=== PATIENT | male | born 1975 | race Caucasian/White ===

== ENCOUNTER 2017-07-01 19:34 | Inpatient (IN) | payer OTHER ==
[~2017-07-01] VITALS: Ht 185.4 cm; Wt 113.6 kg
[2017-07-01] MEDS ORDERED: CLIN300 PO (20:05)
[2017-07-01 20:35] LABS: BASOPHILS ABSOLUTE AUTO 0.01 K/mm3 (0.00-0.23); BASOPHILS PERCENT AUTO 0 % (0-2); EOSINOPHILS PERCENT AUTO 1 % (0-6); Hematocrit 40.1 % (37.0-53.0); Hemoglobin 13.1 g/dL (13.5-17.5); IMMATURE GRAN ABSOLUTE AUTO 0.02 K/mm3 (0.00-0.10); IMMATURE GRAN PERCENT AUTO 0 % (0-1); LYMPHOCYTES ABSOLUTE AUTO 0.84 K/mm3 (0.84-5.20); LYMPHOCYTES PERCENT AUTO 12 % (21-46); MONOCYTES ABSOLUTE AUTO 0.91 K/mm3 (0.16-1.47); MONOCYTES PERCENT AUTO 13 % (4-13); Mean Corpuscular HGB 30.8 pg (26.0-34.0); Mean Corpuscular HGB Conc 32.7 g/dL (31.5-36.5); Mean Corpuscular Volume 94 fL (80-100); Mean Platelet Volume 8.2 fL (9.1-12.4); NEUTROPHILS ABSOLUTE AUTO 5.04 K/mm3 (1.96-9.15); NEUTROPHILS PERCENT AUTO 73 % (41-73); Platelet Count 313 K/mm3 (150-400); RDW Coefficient Variation 13.2 % (11.7-14.2); RDW Standard Deviation 45.6 fL (35.1-46.3); Red Blood Cell Count 4.26 M/mm3 (4.30-5.90); White Blood Cell Count 6.92 K/mm3 (4.00-11.30)
[2017-07-01 20:57] LABS: Alanine Aminotransfer (ALT/SGP 19 U/L (12-78); Albumin, Blood 3.2 g/dL (3.4-5.0); Albumin/Globulin Ratio 0.8 (0.8-1.8); Alk Phos 77 U/L (50-136); Anion Gap 4 mmol/L (6-16); Aspartate Aminotrans (AST/SGOT 14 U/L (12-37); Bilirubin, Total 0.2 mg/dL (0.1-1.0); Blood Urea Nitrogen 11 mg/dL (8-24); Bun/Creatinine Ratio 12.7 (12.0-20.0); CO2, Blood 29 mmol/L (21-32); Calcium, Blood 8.3 mg/dL (8.5-10.1); Chloride, Blood 106 mmol/L (98-108); Creatinine, Blood 0.87 mg/dL (0.60-1.20); Glomerular Filtration Rate >60 (60-); Glucose, Blood 106 mg/dL (70-99); Potassium, Blood 3.8 mmol/L (3.5-5.5); Sodium, Blood 139 mmol/L (136-145); Total Protein, Blood 7.2 g/dL (6.4-8.2)
[2017-07-02 11:55] LABS: Source, Urine Clean Catch
[2017-07-02 12:07] LABS: Bilirubin, Urine Neg (Neg); Blood, Urine Neg (Neg); Glucose Qualitative, Urine Neg (Neg); Ketones, Urine Neg (Neg); Leukocyte Esterase, Urine Neg (Neg); Nitrite, Urine Neg (Neg); Protein, Urine Neg (Neg); Urobilinogen, Urine NORM (Normal)
[2017-07-02 12:14] LABS: Appearance, Urine Clear (Clear); Color, Urine Pale Yellow (P-Yellow)
[2017-07-02 12:25] LABS: U Amphetamine Screen DETECTED; U Barbituate Screen Not Detected; U Benzodiazapine Screen Not Detected; U Buprenorphine Screen Not Detected; U Cannabinoids Screen Not Detected; U Cocaine Screen Not Detected; U Methadone Screen Not Detected; U Methamphetamine Screen DETECTED; U Opiates Screen Not Detected; U Oxycodone Screen Not Detected; U Phencyclidine Screen Not Detected; U Propoxyphene Screen Not Detected
[2017-07-02 21:42] LABS: Vancomycin, Trough 9.3 ug/mL (5.0-10.0)
[2017-07-03 05:15] LABS: BASOPHILS ABSOLUTE AUTO 0.02 K/mm3 (0.00-0.23); BASOPHILS PERCENT AUTO 0 % (0-2); EOSINOPHILS ABSOLUTE AUTO 0.24 K/mm3 (0.00-0.68); EOSINOPHILS PERCENT AUTO 5 % (0-6); Hematocrit 37.9 % (37.0-53.0); Hemoglobin 12.2 g/dL (13.5-17.5); IMMATURE GRAN ABSOLUTE AUTO 0.03 K/mm3 (0.00-0.10); IMMATURE GRAN PERCENT AUTO 1 % (0-1); LYMPHOCYTES ABSOLUTE AUTO 1.45 K/mm3 (0.84-5.20); LYMPHOCYTES PERCENT AUTO 32 % (21-46); MONOCYTES ABSOLUTE AUTO 0.59 K/mm3 (0.16-1.47); MONOCYTES PERCENT AUTO 13 % (4-13); Mean Corpuscular HGB 30.8 pg (26.0-34.0); Mean Corpuscular HGB Conc 32.2 g/dL (31.5-36.5); Mean Corpuscular Volume 96 fL (80-100); Mean Platelet Volume 8.3 fL (9.1-12.4); NEUTROPHILS ABSOLUTE AUTO 2.19 K/mm3 (1.96-9.15); NEUTROPHILS PERCENT AUTO 48 % (41-73); Platelet Count 294 K/mm3 (150-400); RDW Coefficient Variation 13.4 % (11.7-14.2); RDW Standard Deviation 47.7 fL (35.1-46.3); Red Blood Cell Count 3.96 M/mm3 (4.30-5.90); White Blood Cell Count 4.52 K/mm3 (4.00-11.30)
[2017-07-03 05:39] LABS: Alanine Aminotransfer (ALT/SGP 18 U/L (12-78); Albumin, Blood 2.4 g/dL (3.4-5.0); Albumin/Globulin Ratio 0.7 (0.8-1.8); Alk Phos 67 U/L (50-136); Anion Gap 5 mmol/L (6-16); Aspartate Aminotrans (AST/SGOT 10 U/L (12-37); Bilirubin, Total 0.3 mg/dL (0.1-1.0); Blood Urea Nitrogen 14 mg/dL (8-24); CO2, Blood 28 mmol/L (21-32); Chloride, Blood 108 mmol/L (98-108); Creatinine, Blood 0.78 mg/dL (0.60-1.20); Globulin, Blood 3.6 g/dL (2.2-4.0); Glomerular Filtration Rate >60 (60-); Glucose, Blood 94 mg/dL (70-99); Potassium, Blood 3.8 mmol/L (3.5-5.5); Sodium, Blood 141 mmol/L (136-145)
[2017-07-03] MEDS ORDERED: LINE600 PO (14:31)
[2017-07-03] MEDS ORDERED: CLIN300 PO (15:54)
== END 2017-07-03 16:12 | disposition home or self-care (01) | DRG 603 ==
LOC: ER 19:34 → PCU 22:49 → MEDS 22:49 → PCU 23:46 → MEDS 07-02 10:00
PROVIDERS: Internal Medicine; Physician Assistant
DX: L03.116 Cellulitis of left lower limb (principal); F19.10 Other psychoactive substance abuse, uncomplicated; F17.210 Nicotine dependence, cigarettes, uncomplicated; Z86.14 Personal history of Methicillin resistant Staphylococcus aureus infection
CPT/HCPCS: 36415; 80053; 80202; 81003; 83605; 85025; 85651; 93971; 96361; 96365; 99285; J1885; J3370; J7030; J7050

== ENCOUNTER 2017-11-14 20:48 | Emergency (ER) | payer OTHER ==
[~2017-11-14] VITALS: Ht 185.4 cm; Wt 104.3 kg
[~2017-11-14 20:48] MED LIST: CLIN300 PO; LINE600 PO
[2017-11-15] MEDS ORDERED: ACET500 PO (12:15)
== END 2017-11-14 21:39 | disposition home or self-care (01) ==
LOC: ER 20:48
DX: S50.11XA Contusion of right forearm, initial encounter (principal); V29.9XXA Motorcycle rider (driver) (passenger) injured in unspecified traffic accident, initial encounter; F17.210 Nicotine dependence, cigarettes, uncomplicated
CPT/HCPCS: 73090; 96372; 99283-25; J1885

== ENCOUNTER 2017-11-14 23:40 | Observation (INO) | payer OTHER ==
[~2017-11-14] VITALS: Ht 185.4 cm; Wt 105.9 kg
[2017-11-15 00:35] LABS: BASOPHILS ABSOLUTE AUTO 0.02 K/mm3 (0.00-0.23); BASOPHILS PERCENT AUTO 0 % (0-2); EOSINOPHILS ABSOLUTE AUTO 0.14 K/mm3 (0.00-0.68); EOSINOPHILS PERCENT AUTO 3 % (0-6); Hematocrit 43.4 % (37.0-53.0); Hemoglobin 14.2 g/dL (13.5-17.5); IMMATURE GRAN ABSOLUTE AUTO 0.01 K/mm3 (0.00-0.10); IMMATURE GRAN PERCENT AUTO 0 % (0-1); LYMPHOCYTES PERCENT AUTO 26 % (21-46); MONOCYTES ABSOLUTE AUTO 0.55 K/mm3 (0.16-1.47); MONOCYTES PERCENT AUTO 10 % (4-13); Mean Corpuscular HGB 29.9 pg (26.0-34.0); Mean Corpuscular HGB Conc 32.7 g/dL (31.5-36.5); Mean Corpuscular Volume 91 fL (80-100); Mean Platelet Volume 8.7 fL (9.1-12.4); NEUTROPHILS ABSOLUTE AUTO 3.21 K/mm3 (1.96-9.15); NEUTROPHILS PERCENT AUTO 60 % (41-73); Platelet Count 335 K/mm3 (150-400); RDW Coefficient Variation 13.8 % (11.7-14.2); RDW Standard Deviation 46.7 fL (35.1-46.3); Red Blood Cell Count 4.75 M/mm3 (4.30-5.90); White Blood Cell Count 5.33 K/mm3 (4.00-11.30)
[2017-11-15 00:47] LABS: Alanine Aminotransfer (ALT/SGP 49 U/L (12-78); Albumin, Blood 3.5 g/dL (3.4-5.0); Albumin/Globulin Ratio 0.8 (0.8-1.8); Alk Phos 61 U/L (50-136); Anion Gap 3 mmol/L (6-16); Aspartate Aminotrans (AST/SGOT 35 U/L (12-37); Bilirubin, Total 0.3 mg/dL (0.1-1.0); Blood Urea Nitrogen 13 mg/dL (8-24); Bun/Creatinine Ratio 13.2 (12.0-20.0); CO2, Blood 31 mmol/L (21-32); Calcium, Blood 8.4 mg/dL (8.5-10.1); Chloride, Blood 106 mmol/L (98-108); Creatinine, Blood 0.98 mg/dL (0.60-1.20); Globulin, Blood 4.3 g/dL (2.2-4.0); Glomerular Filtration Rate >60 (60-); Glucose, Blood 99 mg/dL (70-99); Potassium, Blood 4.9 mmol/L (3.5-5.5); Sodium, Blood 140 mmol/L (136-145); Total Protein, Blood 7.8 g/dL (6.4-8.2)
[2017-11-15 00:48] LABS: International Normalized Ratio 0.97
[2017-11-15] MEDS ORDERED: ACET500 PO (12:15)
== END 2017-11-15 12:30 | disposition home or self-care (01) ==
LOC: ER 23:40 → SURS 23:41
PROVIDERS: Emergency Medicine
DX: S50.11XA Contusion of right forearm, initial encounter (principal); F17.210 Nicotine dependence, cigarettes, uncomplicated; V18.4XXA Pedal cycle driver injured in noncollision transport accident in traffic accident, initial encounter
CPT/HCPCS: 36415; 80053; 82550; 85025; 85610; 96361; 96365; 96375; 99284-25; G0378; J0690; J1170; J2405; J3480

== ENCOUNTER → 2018-03-17 | Outpatient (CLI) | payer OTHER ==
[~2018-03-17] MED LIST changes: +ACET500 PO
[2018-03-19 07:07] LABS: HIV SCREEN 4TH GENERATION WRFX Non Reactive (Non Reactive)
[2018-03-19 09:00] LABS: HBSAG SCREEN Negative (Negative); HEP A AB, IGM Negative (Negative); HEP B CORE AB, IGM Negative (Negative); HEP C VIRUS AB <0.1 (0.0-0.9)
[2018-03-19 23:09] LABS: CHLAMYDIA TRACHOMATIS, NAA Negative (Negative); NEISSERIA GONORRHOEAE, NAA Negative (Negative)
== END ==
LOC: LAB SHORT 11:38 → LAB EV 11:38
PROVIDERS: Emergency Medicine
DX: Z20.9 Contact with and (suspected) exposure to unspecified communicable disease (principal)
CPT/HCPCS: 80074; 86592; 87070; 87205; 87389; 87491; 87591

== ENCOUNTER → 2018-04-18 | Outpatient (CLI) | payer OTHER ==
[2018-04-18 20:42] LABS: Campylobacter Sp Not Detected (NOT DETECT); Plesiomonas Shigelloides Not Detected (NOT DETECT); Salmonella Sp Not Detected (NOT DETECT); Vibrio Cholerae Not Detected (NOT DETECT); Vibrio Sp Not Detected (NOT DETECT); Yersinia Enterocolitica Not Detected (NOT DETECT)
[2018-04-18 20:43] LABS: Adenovirus F 40/41 Not Detected (NOT DETECT); Astrovirus Not Detected (NOT DETECT); Cryptosporidium Not Detected (NOT DETECT); Cyclospora Cayetanensis Not Detected (NOT DETECT); E. Coli O157 Not Detected (NOT DETECT); Entamoeba Histolytica Not Detected (NOT DETECT); Enteroaggregative E. coli-EAEC Not Detected (NOT DETECT); Enteropathogenic E. coli-EPEC Not Detected (NOT DETECT); Enterotoxigenic E. coli-ETEC Not Detected (NOT DETECT); Giardia Lamblia Not Detected (NOT DETECT); Norovirus GI/GII Not Detected (NOT DETECT); Rotavirus A Not Detected (NOT DETECT); Sapovirus Not Detected (NOT DETECT); Shiga Toxin-prod E. coli-STEC Not Detected (NOT DETECT); Shigella/Enteroin E. coli-EIEC Not Detected (NOT DETECT)
== END | disposition home or self-care (01) ==
LOC: LAB SHORT 10:05 → LAB EV 10:05
PROVIDERS: Family Medicine
DX: A09 Infectious gastroenteritis and colitis, unspecified (principal)
CPT/HCPCS: 87086; 87507

== ENCOUNTER → 2018-10-11 | Outpatient (CLI) | payer OTHER | END | disposition home or self-care (01) | LOC: LAB SHORT 13:25 → LAB EV 13:25 | DX: R00.2 Palpitations (principal) | CPT/HCPCS: 84443 ==

== ENCOUNTER 2019-02-16 19:03 | Emergency (ER) | payer OTHER ==
[~2019-02-16] VITALS: Ht 185.4 cm; Wt 113.4 kg
== END 2019-02-16 20:40 | disposition home or self-care (01) ==
LOC: ER 19:03
DX: S61.012A Laceration without foreign body of left thumb without damage to nail, initial encounter (principal); F17.210 Nicotine dependence, cigarettes, uncomplicated; W26.0XXA Contact with knife, initial encounter
CPT/HCPCS: 12001; 73140; 99283-25

== ENCOUNTER → 2019-02-28 | Outpatient (CLI) | payer OTHER ==
[2019-03-02 03:16] LABS: HBSAG SCREEN Negative (Negative); HEP A AB, IGM Negative (Negative); HEP B CORE AB, IGM Negative (Negative); HEP C VIRUS AB <0.1 (0.0-0.9); HIV SCREEN 4TH GENERATION WRFX Non Reactive (Non Reactive)
[2019-03-03 07:07] LABS: CHLAMYDIA TRACHOMATIS, NAA Negative (Negative); NEISSERIA GONORRHOEAE, NAA Negative (Negative)
== END | disposition home or self-care (01) ==
LOC: LAB SHORT 16:48 → LAB EV 16:48
PROVIDERS: Family Medicine
DX: Z20.9 Contact with and (suspected) exposure to unspecified communicable disease (principal)
CPT/HCPCS: 80074; 86592; 87389; 87491; 87591

== ENCOUNTER 2020-07-03 18:53 | Emergency (ER) | payer OTHER ==
[~2020-07-03] VITALS: Ht 185.4 cm; Wt 117.9 kg
== END 2020-07-03 21:04 | disposition home or self-care (01) ==
LOC: ER 18:53
DX: S50.812A Abrasion of left forearm, initial encounter (principal); F17.210 Nicotine dependence, cigarettes, uncomplicated; W22.8XXA Striking against or struck by other objects, initial encounter
CPT/HCPCS: 99283

== ENCOUNTER 2023-04-11 05:21 | Emergency (ER) | payer OTHER ==
[~2023-04-11] VITALS: Ht 185.4 cm; Wt 122.5 kg
[~2023-04-11 05:21] MED LIST changes: +AMOCLA875 PO
[2023-04-11 05:41] VITALS: BP 169/114
== END 2023-04-11 05:42 | disposition home or self-care (01) ==
LOC: ER 05:21
DX: S06.0X0A Concussion without loss of consciousness, initial encounter (principal); I10 Essential (primary) hypertension; F17.210 Nicotine dependence, cigarettes, uncomplicated; Y04.0XXA Assault by unarmed brawl or fight, initial encounter; Y93.55 Activity, bike riding
CPT/HCPCS: 99283; A9270

== ENCOUNTER 2023-09-25 12:14 | Emergency (ER) | payer OTHER ==
[~2023-09-25] VITALS: Ht 185.4 cm; Wt 108.9 kg
[2023-09-25 13:00] VITALS: BP 169/100
[2023-09-25] MEDS ORDERED: Cephalexin Monohydrate 500 MG Cap PO ONE (14:15)
[2023-09-25] MEDS ORDERED: CEPH500 PO (14:20)
== END 2023-09-25 14:28 | disposition home or self-care (01) ==
LOC: ER 12:14
DX: L02.413 Cutaneous abscess of right upper limb (principal); F19.11 Other psychoactive substance abuse, in remission; F17.210 Nicotine dependence, cigarettes, uncomplicated; Z79.899 Other long term (current) drug therapy
CPT/HCPCS: 99283; A9270

== ENCOUNTER 2024-10-02 16:02 | Emergency (ER) | payer OTHER ==
[~2024-10-02] VITALS: Ht 185.4 cm; Wt 131.0 kg
[~2024-10-02 16:02] MED LIST changes: +CEPH500 PO
[2024-10-02 16:25] VITALS: BP 197/122
== END 2024-10-02 17:59 | disposition home or self-care (01) ==
LOC: ER 16:02
DX: S00.11XA Contusion of right eyelid and periocular area, initial encounter (principal); F17.210 Nicotine dependence, cigarettes, uncomplicated; V29.91XA Electric (assisted) bicycle rider (driver) (passenger) injured in unspecified traffic accident, initial encounter
CPT/HCPCS: 70140; 99283-25

== ENCOUNTER 2025-01-24 17:51 | Inpatient (IN) | payer OTHER ==
[~2025-01-24] VITALS: Ht 185.4 cm; Wt 130.5 kg
[2025-01-24] MEDS ORDERED: Ketorolac Tromethamine 15mg Vial IV ONE (18:10)
[2025-01-24 19:09] LABS: BASOPHILS ABSOLUTE AUTO 0.05 K/mm3 (0.00-0.23); BASOPHILS PERCENT AUTO 0 % (0-2); EOSINOPHILS ABSOLUTE AUTO 0.21 K/mm3 (0.00-0.68); EOSINOPHILS PERCENT AUTO 1 % (0-6); Hematocrit 42.4 % (37.0-53.0); Hemoglobin 13.7 g/dL (13.5-17.5); IMMATURE GRAN ABSOLUTE AUTO 0.10 K/mm3 (0.00-0.10); IMMATURE GRAN PERCENT AUTO 1 % (0-1); LYMPHOCYTES ABSOLUTE AUTO 1.56 K/mm3 (0.84-5.20); LYMPHOCYTES PERCENT AUTO 8 % (21-46); MONOCYTES ABSOLUTE AUTO 1.77 K/mm3 (0.16-1.47); MONOCYTES PERCENT AUTO 9 % (4-13); Mean Corpuscular HGB Conc 32.3 g/dL (31.5-36.5); Mean Corpuscular Volume 88 fL (80-100); NEUTROPHILS ABSOLUTE AUTO 16.49 K/mm3 (1.96-9.15); NEUTROPHILS PERCENT AUTO 82 % (41-73); NRBC ABSOLUTE 0.00 K/mm3 (0.00-0.02); NRBC Auto 0.0 /100 WBC (0.0-0.2); Platelet Count 354 K/mm3 (150-400); RDW Coefficient Variation 14.6 % (11.7-14.2); RDW Standard Deviation 47.4 fL (35.1-46.3)
[2025-01-24 19:25] LABS: C-REACTIVE PROTEIN, EXT RANGE 12.9 mg/dL (0.000-0.300)
[2025-01-24 19:27] LABS: Alanine Aminotransfer (ALT/SGP 22.0 U/L (12-78); Albumin, Blood 3.0 g/dL (3.4-5.0); Albumin/Globulin Ratio 0.7 (0.8-1.8); Anion Gap 6.0 mmol/L (3-11); Aspartate Aminotrans (AST/SGOT 14.0 U/L (12-37); Bilirubin, Total 0.3 mg/dL (0.1-1.0); Blood Urea Nitrogen 11.0 mg/dL (8-24); CO2, Blood 28.0 mmol/L (21-32); Calcium, Blood 8.2 mg/dL (8.5-10.1); Chloride, Blood 103.0 mmol/L (98-108); Creatinine, Blood 1.06 mg/dL (0.60-1.20); Globulin, Blood 4.3 g/dL (2.2-4.0); Glucose, Blood 106.0 mg/dL (70-99); Potassium, Blood 3.8 mmol/L (3.5-5.5); Sodium, Blood 133.0 mmol/L (136-145); Total Protein, Blood 7.3 g/dL (6.4-8.2)
[2025-01-24] MEDS ORDERED: Vancomycin (Pharmacy Consult) IV PRN (19:45)
[2025-01-24] MEDS ORDERED: Vancomycin HCL 2,500 MG in NS 500 ML IV ONE (19:50)
[2025-01-24] MEDS ORDERED: Cefepime HCl 2,000 MG in NS 100 ML IV ONE (19:55)
[2025-01-24] MEDS ORDERED: FLU VACC TS2025-26(6MOS UP)/PF 45 MCG/0.5 ML SYRINGE IM SCH (21:55)
[2025-01-24] MEDS ORDERED: OxyCODONE 5 mg/Acetamin 325 mg TABLET PO PRN (21:55)
[2025-01-24] MEDS ORDERED: Ondansetron HCl 2 MG / ML 2ML Vial IV PRN (21:55)
[2025-01-24] MEDS ORDERED: NS 1,000 ML IV SCH ×3 (21:55→23:45)
[2025-01-24] MEDS ORDERED: Vancomycin (Pharmacy Consult) IV SCH (22:00)
[2025-01-24 23:26] VITALS: BP 138/90
--- NOTE | 2025-01-25 01:44 | NUR ---
ADMIT NOTE 49 YR OLD MALE ADMITTED TO FLOOR FROM THE ED WITH DX OF SEVERE SEPSIS, WITH SWELLING OF RIGHT HAND AND FOREARM (SEE MARKED AREAS). A/O X 4. VSS. DOCUMENTATION REVEALS POSSIBLE SPIDER BITE TO HAND THE INITIAL ISSUE. REVEIVING IV ANTIBIOTICS AND IVF - SEE MAR FOR DETAILS. UP AD DIMITRI, ABLE TO REPOSITION SELF IN BED WITHOUT ASSIST. ORIENTED TO USE OF CALL LIGHT AND BED CONTROL. CALL LIGHT IN REACH AND RAILS UP X 2 WITH BED IN LOW POSITION FOR SAFETY.
[2025-01-25] MEDS ORDERED: CeFAZolin Sodium 2,000 MG in NS 100 ML IV SCH (02:00)
[2025-01-25 04:11] VITALS: BP 117/70
--- NOTE | 2025-01-25 04:58 | NUR ---
MULTIMEDIA PRODUCTION ASSISTANT SUMMARY WAS ADMITTED TO FLOOR EARLIER IN THE SHIFT WITH DX OF SEVERE SEPSIS WITH RIGHT FOREARM/HAND SWOLLEN WITH REPORTED SPIDER BITE. A/O X 4. VSS. IV ANTIBIOTICS AND IVF INFUSING - SEE MAR FOR DETAILS. PT VOICED HE SEES HIS HAND AND ARM DECREASED IN SIZE SINCE COMING IN TO THE HOSPITAL. MEDICATED FOR PAIN. HAS BEEN RESTING QUIETLY WITH FEW INTERRUPTIONS. UP AD DIMITRI. CALL LIGHT IN REACH, RAILS UP X 2 AND BED IN LOW POSITION FOR SAFETY. WILL CONT TO MONITOR.
[2025-01-25 05:27] LABS: BASOPHILS ABSOLUTE AUTO 0.06 K/mm3 (0.00-0.23); BASOPHILS PERCENT AUTO 0 % (0-2); EOSINOPHILS ABSOLUTE AUTO 0.28 K/mm3 (0.00-0.68); EOSINOPHILS PERCENT AUTO 2 % (0-6); Hematocrit 37.6 % (37.0-53.0); Hemoglobin 12.2 g/dL (13.5-17.5); IMMATURE GRAN ABSOLUTE AUTO 0.14 K/mm3 (0.00-0.10); IMMATURE GRAN PERCENT AUTO 1 % (0-1); LYMPHOCYTES ABSOLUTE AUTO 1.42 K/mm3 (0.84-5.20); LYMPHOCYTES PERCENT AUTO 9 % (21-46); MONOCYTES ABSOLUTE AUTO 1.33 K/mm3 (0.16-1.47); MONOCYTES PERCENT AUTO 9 % (4-13); Mean Corpuscular HGB Conc 32.4 g/dL (31.5-36.5); Mean Corpuscular Volume 89 fL (80-100); NEUTROPHILS ABSOLUTE AUTO 11.81 K/mm3 (1.96-9.15); NEUTROPHILS PERCENT AUTO 79 % (41-73); NRBC ABSOLUTE 0.00 K/mm3 (0.00-0.02); NRBC Auto 0.0 /100 WBC (0.0-0.2); Platelet Count 335 K/mm3 (150-400); RDW Coefficient Variation 14.6 % (11.7-14.2); RDW Standard Deviation 46.6 fL (35.1-46.3)
[2025-01-25 05:52] LABS: Anion Gap 7.0 mmol/L (3-11); Blood Urea Nitrogen 13.0 mg/dL (8-24); CO2, Blood 27.0 mmol/L (21-32); Calcium, Blood 8.0 mg/dL (8.5-10.1); Chloride, Blood 105.0 mmol/L (98-108); Creatinine, Blood 1.08 mg/dL (0.60-1.20); Glucose, Blood 117.0 mg/dL (70-99); Magnesium, Blood 1.9 mg/dL (1.6-2.4); Potassium, Blood 3.4 mmol/L (3.5-5.5); Sodium, Blood 136.0 mmol/L (136-145)
--- NOTE | 2025-01-25 06:24 | NUR ---
CONSULT CALLED IN TO ORTHOPEDICS MD MODEL SET ARTIST, ANSWERING SERVICE REPLIED HE WOULD NOTIFY THE MD. (DR PORTER). PT WITH SEVERE RIGHT ARM CELLULITIS.
[2025-01-25] MEDS ORDERED: Piperacillin/Tazobactam Sod 4.5 GM in NS 100 ML IV SCH (06:46)
[2025-01-25 07:16] VITALS: BP 117/68
[2025-01-25] MEDS ORDERED: Lactobacil 2-S.Thermo-Bifido 1 1 Cap PO SCH (09:00)
[2025-01-25] MEDS ORDERED: Enoxaparin 40 MG/0.4 ML SYR SC SCH (09:00)
[2025-01-25 13:03] LABS: U Amphetamine Screen DETECTED; U Barbiturate Screen Not Detected; U Benzodiazapine Screen DETECTED; U Buprenorphine Screen Not Detected; U Cannabinoids Screen Not Detected; U Cocaine Screen Not Detected; U Methadone Screen Not Detected; U Methamphetamine Screen DETECTED; U Opiates Screen Not Detected; U Oxycodone Screen DETECTED; U Phencyclidine Screen Not Detected
[2025-01-25 15:22] VITALS: BP 164/100
[2025-01-25] MEDS ORDERED: HydrALAZINE HCl 20 MG / ML 1ML Vial IV PRN (16:40)
--- NOTE | 2025-01-25 18:18 | NUR ---
SHIFT SUMMARY PATIENT IS A&OX4. ON ROOM AIR WITHOUT TELE. IV INFILTRATED IN THE LEFT UA TODAY, NEW IV WAS PLACED WITH ULTRASOUND BY THE CHARGE NURSE IN THE LEFT FOREARM. IV ANTIBIOTICS RUNNING. PRESSURES HAVE BEEN ELEVATED AND HE WAS GIVEN IV HYDRALAZINE WITH EXCELLENT EFFECT. ORTHO CONSULTED, ADVISED HE DOES NOT NEED A SURGERY. ENCOURAGINNG PATIENT TO KEEP THE ARM ELEVATED, USE ICE PACK, AND CONTINUE WITH IV ANTIBIOTICS. HE IS INDEPENDENT IN THE ROOM AND DID HAVE A SHOWER TODAY. VISITED BY FAMILY AND FRIENDS. NO ACUTE EVENTS THIS SHIFT. HE IS COOPERATIVE WITH CARE AND CALLS APPROPRIATELY. BED IS LOW AND LOCKED, CALL LIGHT IN REACH.
[2025-01-25 18:23] VITALS: BP 142/80
[2025-01-25 20:57] VITALS: BP 147/78
--- NOTE | 2025-01-26 03:37 | NUR ---
RESIDENT ENGINEER SUMMARY VSS. A/O X 4. RIGHT ARM REMAINS SWOLLEN, CONTINUES TO RECEIVE IV ANTIBIOTICS AND IVF, SEE MAR FOR DETAILS. FATHER AND VISITED PT THIS EVENING. UP AD DIMITRI, CONTINENT. HAS BEEN RESTING QUIETLY WITH FEW INTERRUPTIONS. SEE MAR FOR MEDS, SUCH ANALGESICS, ETC ADMIN. CALL LIGHT IN REACH, RAILS UP X 2 AND BED IN LOW POSITION FOR SAFETY. WILL CONT TO MONITOR
[2025-01-26 05:14] VITALS: BP 116/75
[2025-01-26 07:13] VITALS: BP 153/94
[2025-01-26 09:58] LABS: BASOPHILS ABSOLUTE AUTO 0.05 K/mm3 (0.00-0.23); BASOPHILS PERCENT AUTO 0 % (0-2); EOSINOPHILS ABSOLUTE AUTO 0.29 K/mm3 (0.00-0.68); EOSINOPHILS PERCENT AUTO 2 % (0-6); Hematocrit 37.2 % (37.0-53.0); Hemoglobin 11.9 g/dL (13.5-17.5); IMMATURE GRAN ABSOLUTE AUTO 0.07 K/mm3 (0.00-0.10); IMMATURE GRAN PERCENT AUTO 1 % (0-1); LYMPHOCYTES ABSOLUTE AUTO 1.17 K/mm3 (0.84-5.20); LYMPHOCYTES PERCENT AUTO 9 % (21-46); MONOCYTES ABSOLUTE AUTO 1.12 K/mm3 (0.16-1.47); MONOCYTES PERCENT AUTO 8 % (4-13); Mean Corpuscular HGB Conc 32.0 g/dL (31.5-36.5); Mean Corpuscular Volume 89 fL (80-100); NEUTROPHILS ABSOLUTE AUTO 10.65 K/mm3 (1.96-9.15); NEUTROPHILS PERCENT AUTO 80 % (41-73); NRBC ABSOLUTE 0.04 K/mm3 (0.00-0.02); NRBC Auto 0.3 /100 WBC (0.0-0.2); Platelet Count 335 K/mm3 (150-400); RDW Coefficient Variation 14.5 % (11.7-14.2); RDW Standard Deviation 46.6 fL (35.1-46.3)
[2025-01-26 10:38] LABS: Anion Gap 9 mmol/L (3-11); Blood Urea Nitrogen 8 mg/dL (8-24); CO2, Blood 27 mmol/L (21-32); Calcium, Blood 8.7 mg/dL (8.5-10.1); Chloride, Blood 105 mmol/L (98-108); Creatinine, Blood 1.06 mg/dL (0.60-1.20); Glucose, Blood 104 mg/dL (70-99); Potassium, Blood 3.9 mmol/L (3.5-5.5); Sodium, Blood 137 mmol/L (136-145); Vancomycin, Trough 11.4 ug/mL (5.0-10.0)
[2025-01-26 15:03] VITALS: BP 137/77
--- NOTE | 2025-01-26 15:51 | NUR ---
SHIFT SUMMARY PATIENT IS A&OX4. ON ROOM AIR WITHOUT TELE. IV ANTIBIOTICS RUNNING. PRESSURES HAVE REMAINED STABLE TODAY. CONTINUING TO ENCOURAGE PATIENT TO ICE AND ELEVATE ARM. THE RIGHT ARM CELLULITIS IS NOW LOCALIZED WITH A RAISED BLISTER DRAINING VERY LITTLE CLEAR FLUID. PATIENT HAS BEEN PAINFUL AND MEDICATED PER EMAR. HE IS INDEPENDENT IN THE ROOM AND CONTINENT OF BOTH BOWEL AND BLADDER. NO ACUTE EVENTS THIS SHIFT. HE IS COOPERATIVE WITH CARE AND CALLS APPROPRIATELY. BED IS LOW AND LOCKED, CALL LIGHT IN REACH.
[2025-01-26 21:25] VITALS: BP 148/83
--- NOTE | 2025-01-27 03:20 | NUR ---
BLOCK CUBER SUMMARY TEMP ELEVATED (100.5 TEMPORAL, BUT 99.5 ORAL), OTHERWISE VSS. RECEIVING IV ANTIBIOTICS FOR RIGHT ARM CELLULITIS. A/O X 4. COOPERATIVE WITH CARE. NOTE SLIGHT AMT YELLOW DRAINAGE OF RIGHT ARM/ELBOW SITE. CLEANED AND REMAINS WITHOUT FURTHER DRAINAGE. UP AD DIMITRI. HOB ELEVATED FOR COMFORT. HAS BEEN RESTING QUIETLY WITH FEW INTERRUPTIONS, CALL LIGHT IN REACH, RAILS UP X 2 AND BED IN LOW POSITION FOR SAFETY, WILL CONT TO MONITOR
[2025-01-27 03:51] VITALS: BP 143/81
[2025-01-27 04:47] LABS: BASOPHILS ABSOLUTE AUTO 0.06 K/mm3 (0.00-0.23); BASOPHILS PERCENT AUTO 1 % (0-2); EOSINOPHILS ABSOLUTE AUTO 0.37 K/mm3 (0.00-0.68); EOSINOPHILS PERCENT AUTO 3 % (0-6); Hematocrit 35.7 % (37.0-53.0); Hemoglobin 11.8 g/dL (13.5-17.5); IMMATURE GRAN ABSOLUTE AUTO 0.12 K/mm3 (0.00-0.10); IMMATURE GRAN PERCENT AUTO 1 % (0-1); LYMPHOCYTES ABSOLUTE AUTO 1.31 K/mm3 (0.84-5.20); LYMPHOCYTES PERCENT AUTO 11 % (21-46); MONOCYTES ABSOLUTE AUTO 0.97 K/mm3 (0.16-1.47); MONOCYTES PERCENT AUTO 8 % (4-13); Mean Corpuscular HGB Conc 33.1 g/dL (31.5-36.5); Mean Corpuscular Volume 87 fL (80-100); NEUTROPHILS ABSOLUTE AUTO 8.73 K/mm3 (1.96-9.15); NEUTROPHILS PERCENT AUTO 76 % (41-73); NRBC ABSOLUTE 0.00 K/mm3 (0.00-0.02); NRBC Auto 0.0 /100 WBC (0.0-0.2); Platelet Count 363 K/mm3 (150-400); RDW Coefficient Variation 14.6 % (11.7-14.2); RDW Standard Deviation 46.6 fL (35.1-46.3)
[2025-01-27 05:33] LABS: Anion Gap 8.0 mmol/L (3-11); Blood Urea Nitrogen 7.0 mg/dL (8-24); CO2, Blood 27.0 mmol/L (21-32); Calcium, Blood 8.6 mg/dL (8.5-10.1); Chloride, Blood 105.0 mmol/L (98-108); Creatinine, Blood 0.93 mg/dL (0.60-1.20); Glucose, Blood 112.0 mg/dL (70-99); Potassium, Blood 3.8 mmol/L (3.5-5.5); Sodium, Blood 136.0 mmol/L (136-145)
[2025-01-27 07:52] VITALS: BP 156/98
[2025-01-27 15:25] VITALS: BP 160/92
--- NOTE | 2025-01-27 15:43 | NUR ---
[address] PHOENIX TO UPDATE ON CHANGE OF RIGHT ARM CELLULITIS. ADVISED OFFICE OF OPENING AND DRAINAGE AND NEW SWELLING. ADVISED OF NEW IMAGING VIA ULTRASOUND FAITH.
--- NOTE | 2025-01-27 16:42 | NUR ---
SHIFT SUMMARY PATIENT IS A&OX4, HE IS ON ROOM AIR AND WITHOUT TELE. HE IS CONTINENT AND INDEPENDENT IN THE ROOM. THE RIGHT ARM CELLULITIS HAS GROWN IN SIZE, AND THE LESION THAT DEVELOPED YESTERDAY HAS STARTED TO DRAIN YELLOW THIN FLUID. THE PATIENT IS PAINFUL, AND MEDICATED PER EMAR. DR. LOPEZ ORDERED ULTRASOUND AND THIS RN LEFT MESSAGE FOR ORTHO TO UPDATE ON CHANGES TO THE ARM. PATIENT HAS BEEN COOPERATIVE WITH CARE. THERE HAVE BEEN NO ACUTE EVENTS THIS SHIFT. BED IS LOW AND LOCKED. CALL LIGHT IN REACH.
--- NOTE | 2025-01-27 16:54 | NUR ---
CALL FROM DR. PHOENIX AT 1648 DR. PHOENIX ADVISED TO ORDER CBC, ESR, CRP. HE WOULD LIKE THE CT [facility] WITH IV CONTRAST AND FOR THE PATIENT TO BE MADE NPO AFTER MIDNIGHT. DR. PHOENIX ADVISED HE WILL BE AROUND IN THE MORNING TOMORROW, 01/28 TO EVALUATE THE PATIENT.
[2025-01-27 19:52] VITALS: BP 150/94
[2025-01-28] VITALS (15 sets, daily range): BP systolic 115–156; BP diastolic 72–105
--- NOTE | 2025-01-28 03:46 | NUR ---
SHIFT SUMMARY PATIENT IS A&OX4, ABLE TO MAKE NEEDS KNOWN, BED AT LOWEST LEVEL, CALL LIGHT WITHIN REACH, CALLS APPROPRIATELY, INDEPENDENT IN THE ROOM. NO CREPITUS, FEVERS, OR CHILLS AT THIS TIME OF THE NOTE. WILL CONTINUE TO MONITOR.
[2025-01-28 05:37] LABS: BASOPHILS ABSOLUTE AUTO 0.04 K/mm3 (0.00-0.23); BASOPHILS PERCENT AUTO 0 % (0-2); EOSINOPHILS ABSOLUTE AUTO 0.36 K/mm3 (0.00-0.68); EOSINOPHILS PERCENT AUTO 4 % (0-6); Hematocrit 39.1 % (37.0-53.0); Hemoglobin 12.8 g/dL (13.5-17.5); IMMATURE GRAN ABSOLUTE AUTO 0.10 K/mm3 (0.00-0.10); IMMATURE GRAN PERCENT AUTO 1 % (0-1); LYMPHOCYTES ABSOLUTE AUTO 1.29 K/mm3 (0.84-5.20); LYMPHOCYTES PERCENT AUTO 14 % (21-46); MONOCYTES ABSOLUTE AUTO 0.74 K/mm3 (0.16-1.47); MONOCYTES PERCENT AUTO 8 % (4-13); Mean Corpuscular HGB Conc 32.7 g/dL (31.5-36.5); Mean Corpuscular Volume 88 fL (80-100); NEUTROPHILS ABSOLUTE AUTO 7.01 K/mm3 (1.96-9.15); NEUTROPHILS PERCENT AUTO 74 % (41-73); NRBC ABSOLUTE 0.00 K/mm3 (0.00-0.02); NRBC Auto 0.0 /100 WBC (0.0-0.2); Platelet Count 398 K/mm3 (150-400); RDW Coefficient Variation 14.4 % (11.7-14.2); RDW Standard Deviation 46.4 fL (35.1-46.3)
[2025-01-28 06:58] LABS: Anion Gap 8.0 mmol/L (3-11); Blood Urea Nitrogen 10.0 mg/dL (8-24); CO2, Blood 29.0 mmol/L (21-32); Calcium, Blood 9.1 mg/dL (8.5-10.1); Chloride, Blood 103.0 mmol/L (98-108); Creatinine, Blood 1.06 mg/dL (0.60-1.20); Glucose, Blood 114.0 mg/dL (70-99); Potassium, Blood 4.1 mmol/L (3.5-5.5); Sodium, Blood 136.0 mmol/L (136-145)
[2025-01-28] MEDS ORDERED: Tranexamic Acid 100 ML IV SCH (09:15)
--- NOTE | 2025-01-28 10:14 | NUR ---
PLACED ORDER FOR THERAPY DOG S/P CONVERSATION WITH PT'S FATHER. EMOTIONAL SUPPRORTIVE VISIT MADE. PT ANXIOUS ABOUT SURGERY TODAY. THERAPUTIC LISTENING PROVIDED. PT DENIES ADDITIONAL NEEDS AT THIS TIME.
[2025-01-28] MEDS ORDERED: FentaNYL Citrate 50 MCG/ML 2 ML Injection ONE ×2 (13:53→15:16)
[2025-01-28] MEDS ORDERED: Ondansetron HCl 2 MG / ML 2ML Vial IV PRN (13:55)
[2025-01-28] MEDS ORDERED: Midazolam HCl 1MG / ML 2ML Vial IV PRN (13:55)
[2025-01-28] MEDS ORDERED: Albuterol 2.5 MG/3 ML VIAL INH PRN (13:55)
[2025-01-28] MEDS ORDERED: Prochlorperazine Edisylate 10 mg Vial IV PRN (14:00)
[2025-01-28] MEDS ORDERED: Metoclopramide HCl 5MG / ML 2ML Vial IV PRN (14:00)
[2025-01-28] MEDS ORDERED: FentaNYL Citrate 50 MCG/ML 2 ML Injection IV PRN ×2 (14:00)
[2025-01-28] MEDS ORDERED: HYDROmorphone HCl/Pf 1MG SYR IV PRN (14:00)
--- NOTE | 2025-01-28 14:01 | NUR ---
TO [facility] FOR PROCEDURE. History, Chart, Medications and Allergies reviewed before start of procedure. Lungs clear T/O to Auscultation. Patient confirms NPO status and agrees with scheduled surgery. Pre-Op teaching done. Pt verbalizes understanding.
[2025-01-28] MEDS ORDERED: OxyCODONE 5 mg/Acetamin 325 mg TABLET PO PRN (16:10)
--- NOTE | 2025-01-28 19:26 | NUR ---
SUMMARY- PT A/O X4. INDEPENDANT IN ROOM. HAD I&D WITH DR PHOENIX TODAY AND RETURNED 1600. WOUND VAC 125MG CONT PUTTING OUT SM AMT SS DRAINAGE. MARKUS REMAINS RED AND SWOLLEN, LESS SWOLLEN THAN BEFORE PROCEDURE. CMS INTACT TO HAND. INCREASE IN PAIN MED PERC EFFECTIVE TO RELEIVE PAIN- PT STATES HE HAD GOOD BM THIS AM. PT TOLERATING FOOD AND FLUID AFTER SURGERY. MOM AND DAD SUPPORTIVE IN CARE AT BEDSIDE TO VISIT PT. REPORTED TO BLAINE SANFORD
[2025-01-29 03:57] VITALS: BP 150/93
--- NOTE | 2025-01-29 05:18 | NUR ---
SHIFT SUMMARY PATIENT A/OX4, ABLE TO MAKE NEEDS KNOWN. PLEASANT AND COOPERATIVE WITH CARE. INDEPENDENT IN ROOM. WOUND VAC IN PLACE TO RIGHT ARM, FUNCTIONING PROPERLY. PATIENT COMPLAINING OF PAIN TO RIGHT ARM, MEDICATED PER MAY WITH PERCOCET.IV TO LEFT FOREARM INTACT, DRESSING CHANGED THIS SHIFT. IV ABX INFUSED PER MAY. PATIENT'S SPOUSE, JESSICA, AT BEDSIDE THROUGHOUT THE NIGHT. I&D PERFORMED 01/28/25 TO REIGHT ARM CELLULITIS/ABSCESS, PATIENT STATES SOME PAIN RELIEF POST PROCEDURE, WOUND CULTURES STILL PENDING. NO OTHER CONCERNS AT THIS TIME, WILL CONTINUE TO MONITOR.
[2025-01-29 07:43] VITALS: BP 132/92
[2025-01-29 09:46] LABS: BASOPHILS ABSOLUTE AUTO 0.07 K/mm3 (0.00-0.23); BASOPHILS PERCENT AUTO 1 % (0-2); EOSINOPHILS ABSOLUTE AUTO 0.41 K/mm3 (0.00-0.68); EOSINOPHILS PERCENT AUTO 5 % (0-6); Hematocrit 37.1 % (37.0-53.0); Hemoglobin 11.9 g/dL (13.5-17.5); IMMATURE GRAN ABSOLUTE AUTO 0.14 K/mm3 (0.00-0.10); IMMATURE GRAN PERCENT AUTO 2 % (0-1); LYMPHOCYTES ABSOLUTE AUTO 1.11 K/mm3 (0.84-5.20); LYMPHOCYTES PERCENT AUTO 13 % (21-46); MONOCYTES ABSOLUTE AUTO 0.71 K/mm3 (0.16-1.47); MONOCYTES PERCENT AUTO 9 % (4-13); Mean Corpuscular HGB Conc 32.1 g/dL (31.5-36.5); Mean Corpuscular Volume 88 fL (80-100); NEUTROPHILS ABSOLUTE AUTO 5.87 K/mm3 (1.96-9.15); NEUTROPHILS PERCENT AUTO 71 % (41-73); NRBC ABSOLUTE 0.00 K/mm3 (0.00-0.02); NRBC Auto 0.0 /100 WBC (0.0-0.2); Platelet Count 407 K/mm3 (150-400); RDW Coefficient Variation 14.5 % (11.7-14.2); RDW Standard Deviation 46.5 fL (35.1-46.3)
[2025-01-29 10:51] LABS: Vancomycin, Trough 17.2 ug/mL (5.0-10.0)
[2025-01-29 11:08] LABS: Anion Gap 7.0 mmol/L (3-11); Blood Urea Nitrogen 13.0 mg/dL (8-24); CO2, Blood 28.0 mmol/L (21-32); Calcium, Blood 8.6 mg/dL (8.5-10.1); Chloride, Blood 105.0 mmol/L (98-108); Creatinine, Blood 1.13 mg/dL (0.60-1.20); Glucose, Blood 116.0 mg/dL (70-99); Potassium, Blood 4.0 mmol/L (3.5-5.5); Sodium, Blood 136.0 mmol/L (136-145)
[2025-01-29 15:12] VITALS: BP 147/94
[2025-01-29 21:02] VITALS: BP 135/77
[2025-01-30] VITALS (11 sets, daily range): BP systolic 124–165; BP diastolic 78–100
--- NOTE | 2025-01-30 01:55 | NUR ---
SHIFT SUMMARY POD2 FOR RFA I&D WITH WOUND VAC IN PLACE. PLAN FOR REPEAT I&D 01/30/25 WITH NEW WOUND VAC PLACEMENT. NPO. PT A&OX4. ABLE TO MAKE NEEDS KNOWN. AD DIMITRI IN ROOM. LFA PIV/ANTIBIOTICS. PAIN MEDICATED PER MAY, EFFECTIVE. VSS. ROOM AIR.
[2025-01-30 05:22] LABS: BASOPHILS ABSOLUTE AUTO 0.03 K/mm3 (0.00-0.23); BASOPHILS PERCENT AUTO 0 % (0-2); EOSINOPHILS ABSOLUTE AUTO 0.47 K/mm3 (0.00-0.68); EOSINOPHILS PERCENT AUTO 6 % (0-6); Hematocrit 38.4 % (37.0-53.0); Hemoglobin 12.1 g/dL (13.5-17.5); IMMATURE GRAN ABSOLUTE AUTO 0.14 K/mm3 (0.00-0.10); IMMATURE GRAN PERCENT AUTO 2 % (0-1); LYMPHOCYTES ABSOLUTE AUTO 1.40 K/mm3 (0.84-5.20); LYMPHOCYTES PERCENT AUTO 19 % (21-46); MONOCYTES ABSOLUTE AUTO 0.60 K/mm3 (0.16-1.47); MONOCYTES PERCENT AUTO 8 % (4-13); Mean Corpuscular HGB Conc 31.5 g/dL (31.5-36.5); Mean Corpuscular Volume 89 fL (80-100); NEUTROPHILS ABSOLUTE AUTO 4.76 K/mm3 (1.96-9.15); NEUTROPHILS PERCENT AUTO 64 % (41-73); NRBC ABSOLUTE 0.00 K/mm3 (0.00-0.02); NRBC Auto 0.0 /100 WBC (0.0-0.2); Platelet Count 453 K/mm3 (150-400); RDW Coefficient Variation 14.6 % (11.7-14.2); RDW Standard Deviation 47.4 fL (35.1-46.3)
[2025-01-30 05:50] LABS: Alanine Aminotransfer (ALT/SGP 29.0 U/L (12-78); Albumin, Blood 2.2 g/dL (3.4-5.0); Albumin/Globulin Ratio 0.4 (0.8-1.8); Anion Gap 8.0 mmol/L (3-11); Aspartate Aminotrans (AST/SGOT 17.0 U/L (12-37); Bilirubin, Total 0.1 mg/dL (0.1-1.0); Blood Urea Nitrogen 13.0 mg/dL (8-24); C-REACTIVE PROTEIN, EXT RANGE 2.32 mg/dL (0.000-0.300); CO2, Blood 26.0 mmol/L (21-32); Calcium, Blood 8.5 mg/dL (8.5-10.1); Chloride, Blood 108.0 mmol/L (98-108); Creatinine, Blood 1.1 mg/dL (0.60-1.20); Globulin, Blood 4.9 g/dL (2.2-4.0); Glucose, Blood 121.0 mg/dL (70-99); Potassium, Blood 3.9 mmol/L (3.5-5.5); Sodium, Blood 138.0 mmol/L (136-145); Total Protein, Blood 7.1 g/dL (6.4-8.2)
[2025-01-30] MEDS ORDERED: Tranexamic Acid 100 ML IV SCH (06:00)
[2025-01-30] MEDS ORDERED: NS 250 ML IV PRN (06:10)
[2025-01-30] MEDS ORDERED: Bupivacaine HCl 2.5 MG/ML 10ML P/F Injection ONE (15:06)
[2025-01-30] MEDS ORDERED: Lidocaine HCL 1% 10 ML MDV ONE (15:06)
--- NOTE | 2025-01-30 15:19 | NUR ---
PT TRANSPORTED TO [facility] VIA WC. HE AGREES WITH PLANNED SURGERY. LUNG SOUNDS CLEAR. Patient confirms NPO status and agrees with scheduled surgery. WOUND VAC IN PLACE TO RIGHT ARM, RIGHT ARM RED AND SWOLLEN. DENIES NUMBNESS OR TINGLING HAND, WARM TO TOUCH. History, Chart, Medications and Allergies reviewed before start of procedure.
[2025-01-30] MEDS ORDERED: Midazolam HCl 1MG / ML 2ML Vial ONE (15:31)
[2025-01-30] MEDS ORDERED: FentaNYL Citrate 50 MCG/ML 2 ML Injection ONE (15:31)
[2025-01-30] MEDS ORDERED: Metoclopramide HCl 5MG / ML 2ML Vial ONE (15:37)
[2025-01-30] MEDS ORDERED: Dexamethasone Sod Phos 10 MG/ML 1ML VIAL ONE (15:37)
[2025-01-30] MEDS ORDERED: Ondansetron HCl 2 MG / ML 2ML Vial ONE (15:37)
[2025-01-30] MEDS ORDERED: HYDROmorphone HCl/Pf 1MG SYR ONE (15:40)
[2025-01-30] MEDS ORDERED: Albuterol HFA200 ACT/6.7 GM INH ONE (15:47)
[2025-01-30] MEDS ORDERED: Albuterol 2.5 MG/3 ML VIAL INH PRN (16:10)
[2025-01-30] MEDS ORDERED: FentaNYL Citrate 50 MCG/ML 2 ML Injection IV PRN ×2 (16:10)
[2025-01-30] MEDS ORDERED: HYDROmorphone HCl/Pf 1MG SYR IV PRN ×2 (16:10→16:15)
[2025-01-30] MEDS ORDERED: Ondansetron HCl 2 MG / ML 2ML Vial IV PRN (16:10)
[2025-01-30] MEDS ORDERED: Ketorolac Tromethamine 30mg Vial ONE (16:15)
--- NOTE | 2025-01-30 18:03 | NUR ---
SUMMARY PT RETURNED FROM PACU AROUND 1700. DROWSY, WOUND VAC WAS REMOVED, DRESSING TO RARM C/D/I. TO LEAVE IN PLACE UNTIL SURGEON RE-ASSEESS'S. GUAZE AND LOUIS TO R ARM. PT COMPLAINS OF PAIN 8/10 TO R ARM, PRN PERCOCET GIVEN ORDERED POST I&D. PT NOW ON REGULAR DIET, TOLERATING WELL. IV ANTIBX INFUSED ORDERED.
[2025-01-31 00:06] VITALS: BP 139/82
[2025-01-31 04:08] VITALS: BP 130/83
--- NOTE | 2025-01-31 04:46 | NUR ---
SHIFT SUMMARY PT A&OX4. ROOM AIR. S/P I&D 01/30 TO RFA. WOUND VAC DC'D. GAUZE/LOUIS WRAP DRESSING IN PLACE AND C/D/I. MD PLACED NEW ORDER TO PULL PACKING FROM WOUND AND CHANGE DRESSING DAILY STARTING ON POD3. LFA PIV PATENT, RUNNING ANTIBIOTICS. REG DIET. AD DIMITRI IN ROOM. VSS. WILL REPORT TO DAY SHIFT RN.
[2025-01-31 08:24] LABS: BASOPHILS ABSOLUTE AUTO 0.01 K/mm3 (0.00-0.23); BASOPHILS PERCENT AUTO 0 % (0-2); EOSINOPHILS ABSOLUTE AUTO 0.03 K/mm3 (0.00-0.68); EOSINOPHILS PERCENT AUTO 0 % (0-6); Hematocrit 38.3 % (37.0-53.0); Hemoglobin 12.3 g/dL (13.5-17.5); IMMATURE GRAN ABSOLUTE AUTO 0.06 K/mm3 (0.00-0.10); IMMATURE GRAN PERCENT AUTO 1 % (0-1); LYMPHOCYTES ABSOLUTE AUTO 0.82 K/mm3 (0.84-5.20); LYMPHOCYTES PERCENT AUTO 8 % (21-46); MONOCYTES ABSOLUTE AUTO 0.56 K/mm3 (0.16-1.47); MONOCYTES PERCENT AUTO 5 % (4-13); Mean Corpuscular HGB Conc 32.1 g/dL (31.5-36.5); Mean Corpuscular Volume 87 fL (80-100); NEUTROPHILS ABSOLUTE AUTO 9.46 K/mm3 (1.96-9.15); NEUTROPHILS PERCENT AUTO 87 % (41-73); NRBC ABSOLUTE 0.00 K/mm3 (0.00-0.02); NRBC Auto 0.0 /100 WBC (0.0-0.2); Platelet Count 445 K/mm3 (150-400); RDW Coefficient Variation 14.0 % (11.7-14.2); RDW Standard Deviation 44.9 fL (35.1-46.3)
[2025-01-31 08:43] VITALS: BP 169/85
[2025-01-31 08:43] LABS: Anion Gap 10.0 mmol/L (3-11); Blood Urea Nitrogen 19.0 mg/dL (8-24); CO2, Blood 26.0 mmol/L (21-32); Calcium, Blood 8.4 mg/dL (8.5-10.1); Chloride, Blood 106.0 mmol/L (98-108); Creatinine, Blood 0.89 mg/dL (0.60-1.20); Glucose, Blood 121.0 mg/dL (70-99); Potassium, Blood 4.1 mmol/L (3.5-5.5); Sodium, Blood 138.0 mmol/L (136-145)
[2025-01-31 12:54] VITALS: BP 147/77
--- NOTE | 2025-01-31 15:05 | NUR ---
VIEWED CULTURE RESULTS WITH DR VALENCIA IN ROOM.
[2025-01-31 16:29] VITALS: BP 146/91
[2025-01-31] MEDS ORDERED: Piperacillin/Tazobactam Sod 4.5 GM in NS 100 ML IV SCH (18:00)
--- NOTE | 2025-01-31 18:32 | NUR ---
END OF SHIFT PATIENT RESTING AT BEDSIDE, WAITING FOR FAMILY MEMBER TO COME VISIT HAS BEEN CALM AND COOPERATIVE WITH CARE TODAY. RFA WITH GAUZE AND LOUIS WRAPPING C/D/I. IV IN LFA INFUSING TO ORDER. PATIENT IND IN ROOM AND TO BATHROOM. DR VALENCIA AWARE OF CULTURE RESULTS. PATIENT DECLINED QUESTIONS. NO OTHER CONCERNS FOR THIS SHIFT.
[2025-01-31 20:02] VITALS: BP 151/94
[2025-02-01 05:35] VITALS: BP 122/82
--- NOTE | 2025-02-01 06:36 | NUR ---
pT HAD RESTFUL EVENING, UP AND WALKING AROUND UNIT. REMAINS ON IV ABX AND USES CALL LIGHT APPROPRIATELY
[2025-02-01 07:33] VITALS: BP 142/95
[2025-02-01 08:10] LABS: BASOPHILS ABSOLUTE AUTO 0.05 K/mm3 (0.00-0.23); BASOPHILS PERCENT AUTO 1 % (0-2); EOSINOPHILS ABSOLUTE AUTO 0.42 K/mm3 (0.00-0.68); EOSINOPHILS PERCENT AUTO 5 % (0-6); Hematocrit 36.9 % (37.0-53.0); Hemoglobin 11.7 g/dL (13.5-17.5); IMMATURE GRAN ABSOLUTE AUTO 0.07 K/mm3 (0.00-0.10); IMMATURE GRAN PERCENT AUTO 1 % (0-1); LYMPHOCYTES ABSOLUTE AUTO 1.65 K/mm3 (0.84-5.20); LYMPHOCYTES PERCENT AUTO 20 % (21-46); MONOCYTES ABSOLUTE AUTO 0.81 K/mm3 (0.16-1.47); MONOCYTES PERCENT AUTO 10 % (4-13); Mean Corpuscular HGB Conc 31.7 g/dL (31.5-36.5); Mean Corpuscular Volume 87 fL (80-100); NEUTROPHILS ABSOLUTE AUTO 5.15 K/mm3 (1.96-9.15); NEUTROPHILS PERCENT AUTO 63 % (41-73); NRBC ABSOLUTE 0.00 K/mm3 (0.00-0.02); NRBC Auto 0.0 /100 WBC (0.0-0.2); Platelet Count 471 K/mm3 (150-400); RDW Coefficient Variation 14.6 % (11.7-14.2); RDW Standard Deviation 46.6 fL (35.1-46.3)
[2025-02-01 08:41] LABS: Anion Gap 8.0 mmol/L (3-11); Blood Urea Nitrogen 17.0 mg/dL (8-24); C-REACTIVE PROTEIN, EXT RANGE 0.673 mg/dL (0.000-0.300); CO2, Blood 26.0 mmol/L (21-32); Calcium, Blood 8.2 mg/dL (8.5-10.1); Chloride, Blood 108.0 mmol/L (98-108); Creatinine, Blood 1.05 mg/dL (0.60-1.20); Glucose, Blood 96.0 mg/dL (70-99); Potassium, Blood 3.8 mmol/L (3.5-5.5); Sodium, Blood 138.0 mmol/L (136-145)
[2025-02-01] MEDS ORDERED: Ipratropium/Albuterol SulF 2.5-0.5MG/3 ML Amp INH PRN (16:30)
--- NOTE | 2025-02-01 18:48 | NUR ---
SHIFT SUMMARY; PT A/OX4 AND INDEPENDENT WHEN AMBULATING TO THE RESTROOM. PT MEDICATED PER EMAR. PT DENIES PAIN IN HIS ARM THIS SHIFT. WOUND DRESSING LEFT IN PLACE PER WOUND CARE ORDERS. LAB WORK COLLECTED THIS AM. SEE RESULTS. PT REPORTS HAVING A BOWEL MOVEMENT THIS SHIFT. PT TAKES WALK AROUND THE HOSPITAL TWICE. VSS. BED IN LOW POSITION AND CALL LIGHT WITHIN REACH.
[2025-02-01 19:56] VITALS: BP 152/94
[2025-02-02 03:32] VITALS: BP 132/91
[2025-02-02 05:34] LABS: Anion Gap 9.0 mmol/L (3-11); Blood Urea Nitrogen 16.0 mg/dL (8-24); CO2, Blood 24.0 mmol/L (21-32); Calcium, Blood 8.6 mg/dL (8.5-10.1); Chloride, Blood 107.0 mmol/L (98-108); Creatinine, Blood 1.07 mg/dL (0.60-1.20); Glucose, Blood 101.0 mg/dL (70-99); Potassium, Blood 4.1 mmol/L (3.5-5.5); Sodium, Blood 136.0 mmol/L (136-145)
--- NOTE | 2025-02-02 07:17 | NUR ---
PT HAD A RELAXED EVENING, CONTINUING IV ABX, REFUSED LAB REDRAW IN THE MORNING STATING THAT HE'D LIKE THEM TO COME BACK LATER. COMPLAINTS OF ITCHING BENEATH DRESSING-WOUND CARE TO OCCUR TODAY. RA NO TELE USES CALL LIGHT APPROPRIATELY
[2025-02-02 07:44] VITALS: BP 140/87
--- NOTE | 2025-02-02 17:54 | NUR ---
SHIFT SUMMARY; PT A/OX4 AND INDEPENDENT W/ AMBULATION TO RESTROOM AND WHEN WALKING AROUND HOSPITAL. PT REPORTS 5/10 PAIN WITHIN THE R ARM. PT MEDICATED PER EMAR. ORTHOPEDIC SURGEON AT BEDSIDE THIS AFTERNOON AND DRESSING REMOVED AND CHANGED BY DOCTOR. XEROFORM APPLIED DIRECTLY TO POST DEBRIDEMENT AREA W/ GAUZE COVERING XEROFORM, WRAPPED W/ KERLEX AND LOUIS BANDAGE. PT TOLERATED BANDAGE CHANGE WELL. BED IN LOWEST POSITION AND CALL LIGHT WITHIN REACH.
[2025-02-02 20:29] VITALS: BP 162/95
[2025-02-03 04:32] VITALS: BP 142/96
[2025-02-03 05:08] LABS: BASOPHILS ABSOLUTE AUTO 0.07 K/mm3 (0.00-0.23); BASOPHILS PERCENT AUTO 1 % (0-2); EOSINOPHILS ABSOLUTE AUTO 0.44 K/mm3 (0.00-0.68); EOSINOPHILS PERCENT AUTO 5 % (0-6); Hematocrit 39.2 % (37.0-53.0); Hemoglobin 12.6 g/dL (13.5-17.5); IMMATURE GRAN ABSOLUTE AUTO 0.20 K/mm3 (0.00-0.10); IMMATURE GRAN PERCENT AUTO 2 % (0-1); LYMPHOCYTES ABSOLUTE AUTO 1.95 K/mm3 (0.84-5.20); LYMPHOCYTES PERCENT AUTO 20 % (21-46); MONOCYTES ABSOLUTE AUTO 0.97 K/mm3 (0.16-1.47); MONOCYTES PERCENT AUTO 10 % (4-13); Mean Corpuscular HGB Conc 32.1 g/dL (31.5-36.5); Mean Corpuscular Volume 87 fL (80-100); NEUTROPHILS ABSOLUTE AUTO 6.14 K/mm3 (1.96-9.15); NEUTROPHILS PERCENT AUTO 63 % (41-73); NRBC ABSOLUTE 0.00 K/mm3 (0.00-0.02); NRBC Auto 0.0 /100 WBC (0.0-0.2); Platelet Count 459 K/mm3 (150-400); RDW Coefficient Variation 14.4 % (11.7-14.2); RDW Standard Deviation 45.7 fL (35.1-46.3)
[2025-02-03 05:30] LABS: C-REACTIVE PROTEIN, EXT RANGE 0.442 mg/dL (0.000-0.300)
[2025-02-03 05:31] LABS: Anion Gap 9.0 mmol/L (3-11); Blood Urea Nitrogen 17.0 mg/dL (8-24); CO2, Blood 24.0 mmol/L (21-32); Calcium, Blood 8.4 mg/dL (8.5-10.1); Chloride, Blood 107.0 mmol/L (98-108); Creatinine, Blood 1.13 mg/dL (0.60-1.20); Glucose, Blood 98.0 mg/dL (70-99); Potassium, Blood 3.8 mmol/L (3.5-5.5); Sodium, Blood 136.0 mmol/L (136-145)
--- NOTE | 2025-02-03 06:57 | NUR ---
NO ACUTE CHANGES NOTED
[2025-02-03 07:33] VITALS: BP 147/101
[2025-02-03] MEDS ORDERED: VISBIOME 112.51 EACH PO (11:47)
[2025-02-03] MEDS ORDERED: Acetaminophen650 M1 PO (11:48)
[2025-02-03] MEDS ORDERED: Hydrochloroth12.5 MG PO (11:49)
[2025-02-03] MEDS ORDERED: AMOCLA875 PO (11:50)
--- NOTE | 2025-02-03 13:01 | NUR ---
discharge dr barkley into see pt, discharge instructions given. pt given instructions for daily dressing change, supplies given for a few days of changes. pt iv taken out. pt refused wheelchair and walked ouot to meet father.
== END 2025-02-03 12:54 | disposition home health service (06) | DRG 854 ==
LOC: ER 17:51 → MEDS 21:51 → ENPENDDIS 02-03 11:30 → MEDS 02-03 12:54
PROVIDERS: Emergency Medicine; Family Medicine; Internal Medicine; Nurse Practitioner Acute Care; Orthopaedic Surgery; ADMIT Internal Medicine
PROC: 3E03329 Introduction of Other Anti-infective into Peripheral Vein, Percutaneous Approach (ICD-10-PCS; 2025-01-24)
PROC: 0JDG0ZZ Extraction of Right Lower Arm Subcutaneous Tissue and Fascia, Open Approach (ICD-10-PCS; principal; 2025-01-28 14:30)
PROC: 0JDG0ZZ Extraction of Right Lower Arm Subcutaneous Tissue and Fascia, Open Approach (ICD-10-PCS; 2025-01-30)
DX: A41.89 Other specified sepsis (principal); E87.1 Hypo-osmolality and hyponatremia; E87.20 Acidosis, unspecified; L02.413 Cutaneous abscess of right upper limb; L03.113 Cellulitis of right upper limb; R65.20 Severe sepsis without septic shock; E87.6 Hypokalemia; I10 Essential (primary) hypertension; F15.10 Other stimulant abuse, uncomplicated; D64.9 Anemia, unspecified; D75.839 Thrombocytosis, unspecified; S50.861A Insect bite (nonvenomous) of right forearm, initial encounter; W57.XXXA Bitten or stung by nonvenomous insect and other nonvenomous arthropods, initial encounter; F17.210 Nicotine dependence, cigarettes, uncomplicated; E66.01 Morbid (severe) obesity due to excess calories; Z86.14 Personal history of Methicillin resistant Staphylococcus aureus infection; Z56.0 Unemployment, unspecified; Z68.36 Body mass index [BMI] 36.0-36.9, adult
CPT/HCPCS: 36415; 73201; 76882; 80048; 80053; 80202; 83605; 83735; 85025; 85651; 86140; 87040; 87070; 87071; 87075; 87076; 87205; 93005; 93010; 94760; 96365; 96375; 99285-25; A9270; J0360; J0690; J0692; J1100; J1171; J1650; J1885; J2003; J2250; J2405; J2543; J2704; J2765; J3010; J3373; J7030; J7040; J7050; J7120; Q9967

== ENCOUNTER → 2025-02-15 | Outpatient (CLI) | payer OTHER ==
[~2025-02-15] MED LIST changes: +Acetaminophen650 M1 PO; +Hydrochloroth12.5 MG PO; +VISBIOME 112.51 EACH PO
== END ==
LOC: LAB SHORT 14:17 → LAB 14:17
DX: L02.413 Cutaneous abscess of right upper limb (principal)
CPT/HCPCS: 87070; 87205